=== PATIENT | male | born 1950 | race Caucasian/White ===

== ENCOUNTER → 2016-12-23 | Outpatient (CLI) | payer BC ==
--- NOTE | 2016-12-23 14:32 | RAD ---
EXAM DESCRIPTION: Elbow,Right 3 Views CLINICAL HISTORY: PAIN IN RIGHT ELBOW COMPARISON: None Available. TECHNIQUE: AP, Lateral, and Oblique FINDINGS: Three views of the right elbow demonstrate modest degenerative changes with prominent spur involving the olecranon process but no evidence of acute fracture or dislocation or large joint effusion. The radial neck and head appear intact. No fracture or dislocation noted. IMPRESSION: 1. Mild degenerative changes. Electronically signed by: Edinson Leiva MD 12/23/2016 2:31 PM [facility]
--- NOTE | 2016-12-23 14:34 | RAD ---
EXAM DESCRIPTION: Foot,Right 3 Views CLINICAL HISTORY: 66 years, Male, PAIN IN RIGHT FOOT COMPARISON: None TECHNIQUE: AP, lateral, and oblique views of the right foot FINDINGS: Right foot is osteopenic and mildly degenerative. Previous internal fixation of the medial malleolus with two screws and the lateral malleolus with a sideplate is noted. Deformity of the fifth proximal phalanx suggests previous fracture. No acute fracture or dislocation is seen. No foreign body is noted. IMPRESSION: Mild osteopenia without acute injury with probable old healed fracture of the fifth proximal phalanx. Electronically signed by: Edinson Leiva MD 12/23/2016 2:33 PM [facility]
== END | disposition home or self-care (01) ==
LOC: RAD 07:55
PROVIDERS: ATTEND Orthopaedic Surgery
DX: M79.671 Pain in right foot (principal)

== ENCOUNTER → 2017-08-21 | Outpatient (CLI) | payer BC, MEDICARE | LOC: GMAE 15:13 | PROVIDERS: ATTEND Family Medicine | DX: G60.3 Idiopathic progressive neuropathy (principal); M54.16 Radiculopathy, lumbar region; Z79.891 Long term (current) use of opiate analgesic; Z51.81 Encounter for therapeutic drug level monitoring ==

== ENCOUNTER → 2017-08-28 | Outpatient (CLI) | payer MEDICARE | LOC: LAB.O 11:47 | PROVIDERS: ATTEND Psychiatry & Neurology Neurology | DX: M45.0 Ankylosing spondylitis of multiple sites in spine (principal); K50.90 Crohn's disease, unspecified, without complications; M33.90 Dermatopolymyositis, unspecified, organ involvement unspecified; R53.83 Other fatigue; M79.A9 Nontraumatic compartment syndrome of other sites; M10.9 Gout, unspecified; E03.9 Hypothyroidism, unspecified; G60.3 Idiopathic progressive neuropathy; M35.1 Other overlap syndromes; G35 Multiple sclerosis; M79.1 Myalgia; E53.8 Deficiency of other specified B group vitamins; M32.10 Systemic lupus erythematosus, organ or system involvement unspecified ==

== ENCOUNTER → 2018-11-06 | Outpatient (CLI) | payer MEDICARE ==
--- NOTE | 2018-11-06 18:19 | US ---
EXAM DESCRIPTION: Venous,Lower Extremity RT CLINICAL HISTORY: POSSIBLE DVT COMPARISON: None Available. TECHNIQUE: Right lower extremity venous duplex FINDINGS: Doppler evaluation of the right lower extremity deep veins was performed. Normal color flow is seen in the common femoral, superficial femoral, profunda femoral and greater saphenous veins. Normal flow is seen in the popliteal vein and veins below the knee in the calf. Normal venous compressibility and flow augmentation. IMPRESSION: Negative for evidence of deep venous thrombosis on right lower extremity venous Doppler sonogram. Electronically signed by: Jc Porter MD 11/06/2018 6:18 PM CDT
== END ==
LOC: US 17:36
PROVIDERS: ATTEND Family Medicine
DX: R22.41 Localized swelling, mass and lump, right lower limb (principal)

== ENCOUNTER → 2018-11-09 | Outpatient (CLI) | payer MEDICARE | LOC: GMAE 12:54 | PROVIDERS: ATTEND Family Medicine | DX: M25.571 Pain in right ankle and joints of right foot (principal) ==

== ENCOUNTER → 2018-12-03 | Outpatient (CLI) | payer MEDICARE ==
--- NOTE | 2018-12-03 14:21 | RAD ---
4 radiographs right knee Indication: KNEE PAIN Comparison: September 06, 2014 Impression: Moderate tricompartmental joint space narrowing throughout the right knee with tiny joint line osteophytes. Small knee effusion. No acute fracture. Electronically signed by: Vinay Shine MD 12/03/2018 2:19 PM CDT
--- NOTE | 2018-12-03 14:21 | RAD ---
Single frontal view pelvis Indication: HIP PAIN Comparison: September 06, 2014 Impression: Lower lumbar fusion construct partially visualized. No acute fracture the pelvis identified. Evaluation for fracture is limited given the degree of osteopenia. If high clinical concern for acute fracture, correlation with MRI recommended given its greater sensitivity in the osteopenic patient. If the patient cannot tolerate MRI imaging or more urgent imaging is required, CT could be performed, however it is less sensitive in the osteopenic patient when compared to MRI. Mild bilateral hip osteoarthritis. Mild pubic symphysis osteoarthritis. Osteopenia. If this is a new finding, DEXA scan recommended as well as evaluation for possible osteoporosis treatment. Electronically signed by: Vinay Shine MD 12/03/2018 2:20 PM CDT
== END ==
LOC: RAD 09:07
PROVIDERS: ATTEND Orthopaedic Surgery
DX: M17.11 Unilateral primary osteoarthritis, right knee (principal); M16.0 Bilateral primary osteoarthritis of hip; M85.88 Other specified disorders of bone density and structure, other site

== ENCOUNTER → 2019-03-15 | Outpatient (CLI) | payer MEDICARE | LOC: GMAE 10:31 | PROVIDERS: ATTEND Family Medicine | DX: Z12.5 Encounter for screening for malignant neoplasm of prostate (principal); I10 Essential (primary) hypertension; E78.5 Hyperlipidemia, unspecified; E11.9 Type 2 diabetes mellitus without complications | CPT/HCPCS: 84443; G0103 ==

== ENCOUNTER → 2019-08-16 | Outpatient (CLI) | payer MEDICARE ==
--- NOTE | 2019-08-16 16:48 | MRI ---
EXAM DESCRIPTION: Brain w/o Contrast: MRI. CLINICAL HISTORY: CEREBROVASCULAR DISEASE COMPARISON: None. TECHNIQUE: Multiplanar, high-field MRI unit, multiple diffusion sequences, multiple conventional sequences without contrast. FINDINGS: Trace amount of hyperintense FLAIR and T2-weighted signal in the periventricular white matter tracks: Byrd radiata and centrum semiovale. No hemorrhage, no cerebral edema, no midline shift.. Normal signal in the bilateral basal ganglia. Normal signal in the brainstem and cerebellar hemispheres.. Concordance of the diffusion and non-diffusion sequences with no diffusion restriction. Cortical sulci, ventricles, and other CSF spaces, and the subdural spaces are normally configured for patients age, except for slightly more prominence of frontal cortical sulci. No effacement or displacement. No midline shift. No extra-axial hemorrhage. Normal flow signal void in the major vessels of the [place], and the venous sinuses. IACs are symmetric bilaterally. Normal signal in the bilateral mastoid air cells. No mass effect in the bilateral cerebellopontine angles. Pituitary gland occupies most of the sella. Base of the cerebellar tonsils is above the foramen magnum. Minimal mucoperiosteal thickening in the paranasal sinuses. The bony calvarium is intact. IMPRESSION: 1. Signal in the periventricular white matter is most likely related to aging. Less likely related to early cerebral microvascular disease or other processes. Also age-related changes symmetrically in the bilateral frontal lobes. 2. Mild chronic paranasal sinusitis. Electronically signed by: Clifford Feliciano MD 08/16/2019 4:47 PM CDT
== END ==
LOC: MRI 10:31
PROVIDERS: ATTEND Psychiatry & Neurology Neurology
DX: I67.9 Cerebrovascular disease, unspecified (principal); J32.9 Chronic sinusitis, unspecified; M54.12 Radiculopathy, cervical region; M54.16 Radiculopathy, lumbar region

== ENCOUNTER → 2019-08-17 | Outpatient (CLI) | payer MEDICARE ==
--- NOTE | 2019-08-17 14:25 | MRI ---
EXAM DESCRIPTION: Lumbar Spine w/o Contrast CLINICAL HISTORY: 68 years Male, LUMBAR RADICULOPATHY COMPARISON: MRI lumbar spine 11/25/2012. TECHNIQUE: Multisequence, multiplanar images of the lumbar spine without intravenous contrast. FINDINGS: For the purpose of this report, the designated L5-S1 disc space will be referred to as axial T2 image 3, series 501. Vertebrae: Susceptibility artifact secondary to posterior fusion construct spanning L3-S1. Within these limitations, no acute fracture or acute compression deformity. Moderate levocurvature centered at L2-L3. Mild lumbar lordosis. Normal AP alignment. No suspicious marrow signal of the nonsurgical levels. Spinal cord: Termination of the conus medullaris at T12. Normal nerve roots of the cauda equina. Discs, facets, spinal canal, and neural foramina: Disc desiccation at L2-L3. Mild disc space narrowing at L2-3 through L4-5. L1-L2: Minimal disc bulge eccentric towards the left probably containing posterior left foraminal tiny annular fissure. Severe facet arthropathy. Mild right lateral recess stenosis. Spinal canal patent. Mild bilateral neural foraminal stenosis. L2-3: Minimal disc bulge. Severe facet arthropathy. Spinal canal patent. Mild right but no left neural foraminal stenosis. L3-4: No disc bulge. Severe facet arthropathy. Mild right lateral recess stenosis which could be abutting and affecting the transiting L4 nerve root. Mild spinal canal stenosis. Mild right but no left neural foraminal stenosis. L4-5: No disc bulge. Spinal canal patent. Mild left but no right neural foraminal stenosis. L5-S1: Small disc bulge. Spinal canal patent. Mild left but no right or foraminal stenosis. Paraspinous soft tissues: Unremarkable. IMPRESSION: 1. No acute fracture. 2. Posterior fusion construct at L3-S1. 3. Lumbar spondylosis with no greater than mild spinal canal stenosis. 4. L3-L4 mild right lateral recess stenosis could be affecting the transiting right L4 nerve root. 5. Multilevel mild neural foraminal stenosis. Electronically signed by: Geoff Wilson MD 08/17/2019 2:23 PM CDT
== END ==
LOC: MRI 13:00
PROVIDERS: ATTEND Psychiatry & Neurology Neurology
DX: M47.26 Other spondylosis with radiculopathy, lumbar region (principal); M48.061 Spinal stenosis, lumbar region without neurogenic claudication; Z98.1 Arthrodesis status; I67.9 Cerebrovascular disease, unspecified

== ENCOUNTER → 2019-08-18 | Outpatient (CLI) | payer MEDICARE ==
--- NOTE | 2019-08-18 15:59 | MRI ---
EXAM DESCRIPTION: Cervical Spine: MRI. CLINICAL HISTORY: 68 years Male RADICULOPATHY COMPARISON: MRI lumbar spine August 16. TECHNIQUE: Multiplanar, high-field MRI, multiple sequences, non-contrast Cervical spine. FINDINGS: C4-C5: Minimal disc desiccation with anterior posterior bulging not abutting the cord. Left uncinate spur encroaching on the left neural foramen is moderately narrowed. Mild narrowing right neural foramen and canal. Facet joints and ligaments are unremarkable. C5-C6: Disc desiccation with posterior midline and right posterior bulge abutting the cord and the right C6 nerve. Small right uncinate spur with moderate to severe right foraminal narrowing. Left neuroforamen patent. Moderate narrowing right paracentral canal. Facet joints are negative. C7-T1: Disc space loss minimal with posterior bulge and trace anterolisthesis. Canal and neural foramina are patent. Facet joints are negative. Normal signal in the C2-C3 disc, C3-C4 disc, C6-C7 disc, and T1-T2 disc with no bulging. Disc spaces preserved. Canal and neural foramina are patent. Facet joints are unremarkable. Spinal alignment reduced cervical lordosis. No cord compression or cord edema. Atlantoaxial joint with mild arthrosis and hypertrophy. Base of the cerebellar tonsils is at the level of the foramen magnum. Paravertebral soft tissues negative.. Vertebral bodies are not compressed at any level. Otherwise normal marrow signal in the remaining vertebral bodies and the posterior elements. IMPRESSION: 1. Left uncinate spur at C4-C5 narrowing the left neural foramen. 2. Right posterior bulge of the C5-C6 disc abutting the cord and the right C6 nerve. No neural foraminal stenosis. Electronically signed by: Clifford Feliciano MD 08/18/2019 3:58 PM CDT
== END ==
LOC: MRI 15:15
PROVIDERS: ATTEND Psychiatry & Neurology Neurology
DX: M50.122 Cervical disc disorder at C5-C6 level with radiculopathy (principal); M25.78 Osteophyte, vertebrae

== ENCOUNTER 2019-10-10 17:55 | Emergency (ER) | payer MEDICARE ==
[2019-10-10] MEDS ORDERED: TETANUS,DIPHTHERIA,PERTUSSIS 1 EA SYG IM ONE (18:30)
[2019-10-10] MEDS ORDERED: SULFA/TRIMETH 800/160 (DS) TAB 1 EA TAB PO ONE (18:30)
--- NOTE | 2019-10-10 18:32 | ED.PDOC ---
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 He has a 9 cm laceration to the palmar aspect of the left forearm. No evidence of any laceration to the muscle or deeper tissue. There is mild numbness around the area. He did clean it with Betadine solution prior to coming in. The patient is pleasant and cooperative. No other injuries. It was cut with a scalpel. Timing/Duration: momentarily Severity: mild Improving Factors: nothing Worsening Factors: nothing Associated Symptoms: denies symptoms Allergies/Adverse Reactions: Allergies NO KNOWN ALLERGY Allergy (Verified 10/10/19 18:17) Home Medications: Ambulatory Orders Atorvastatin Calcium [Lipitor] 20 mg PO DAILY 07/25/14 Lansoprazole [Prevacid] 30 mg PO DAILY 07/25/14 Lisinopril 40 mg PO DAILY 07/25/14 Pregabalin [Lyrica] 75 mg PO BID 07/25/14 Tramadol HCl 50 mg PO QID 07/25/14 Zolpidem Tartrate [Ambien] 10 mg PO BEDTIME 07/25/14 amLODIPine BESYLATE [Norvasc] 5 mg PO DAILY 07/25/14 Meclizine HCl [Antivert] 25.5 mg PO TID PRN #15 tab 03/28/15 Ondansetron Tab [Zofran Tab] 4 mg PO BID PRN #8 tab 03/28/15 Sulfa/Trimeth 800/160 (Ds) Tab [Bactrim DS Tab] 1 ea PO DAILY #5 tab 10/10/19 Review of Systems - Review of Systems Constitutional: States: no symptoms reported EENTM: States: no symptoms reported Respiratory: States: no symptoms reported Cardiology: States: no symptoms reported Gastrointestinal/Abdominal: States: no symptoms reported Genitourinary: States: no symptoms reported Musculoskeletal: States: no symptoms reported Skin: States: see HPI Neurological: States: no symptoms reported Endocrine: States: no symptoms reported All other Systems: No Change from Baseline Past Medical History (General) - Patient Medical History Hx Stroke: No Hx of COPD: No Hx Cardiac Disorders: No Hx Congestive Heart Failure: No Hx Hypertension: Yes Hx Diabetes: No Hx Cancer: No - Vaccination History Hx Influenza Vaccination: Yes Hx Pneumococcal Vaccination: Yes - Social History Hx Tobacco Use: Yes Hx Alcohol Use: Yes Hx Substance Use: No Hx Substance Use Treatment: No Hx Depression: No - Female History Patient is a Female of Child Bearing Age (10 -59 yrs old): No Patient : No Family Medical History - Family History Father Family History: Unknown Living Status: Unknown Physical Exam - Physical Exam General Appearance: Alert, Comfortable, No apparent distress Eye Exam: bilateral normal Ears, Nose, Throat: hearing grossly normal Respiratory: no respiratory distress, no accessory muscle use Cardiovascular/Chest: normal peripheral pulses, no edema Peripheral Pulses: radial,right: 2+, radial,left: 2+ Rectal Exam: deferred Extremity: normal range of motion - Of the upper extremities, normal capillary refill 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 3-0 Ethilon was used for reapproximation. Sutures can come out in 10 days. The patient will be placed on 5 days of daily Bactrim for infection prophylaxis and the patient did receive a dose of tetanus here prior to discharge. Monitor for any evidence of infection. ER warnings are given for any worsening. [id number] Procedure note: Risk and benefits were explained and patient agreed to proceed. Wound is irrigated with 250 cc of sterile saline. Lidocaine with epinephrine x6 cc was used for local anesthetic. Approximately 8 sutures of 3-0 Ethilon were used for reapproximation. Good hemostasis obtained. Sutures need to be removed in 10 days. Departure - Departure Clinical Impression: Accidental laceration Disposition: Discharge to Home or Self Care Condition: Fair Departure Forms: ED Discharge - Pt. Copy, Patient Portal Self Enrollment Diet: regular diet Activity: increase activity as tolerated Referrals: ROXANE FRAUSTO MD [Primary Care Provider] - 1-2 Weeks Prescriptions: Sulfa/Trimeth 800/160 (Ds) Tab [Bactrim DS Tab] 1 ea PO DAILY #5 tab Home Medications: Ambulatory Orders Atorvastatin Calcium [Lipitor] 20 mg PO DAILY 07/25/14 Lansoprazole [Prevacid] 30 mg PO DAILY 07/25/14 Lisinopril 40 mg PO DAILY 07/25/14 Pregabalin [Lyrica] 75 mg PO BID 07/25/14 Tramadol HCl 50 mg PO QID 07/25/14 Zolpidem Tartrate [Ambien] 10 mg PO BEDTIME 07/25/14 amLODIPine BESYLATE [Norvasc] 5 mg PO DAILY 07/25/14 Meclizine HCl [Antivert] 25.5 mg PO TID PRN #15 tab 03/28/15 Ondansetron Tab [Zofran Tab] 4 mg PO BID PRN #8 tab 03/28/15 Sulfa/Trimeth 800/160 (Ds) Tab [Bactrim DS Tab] 1 ea PO DAILY #5 tab 10/10/19 Additional Instructions: The patient is a 69-year-old male presented emergency room secondary to a 9 cm laceration to the mid forearm on the left , that does go through the skin but not into deeper tissue. 3-0 Ethilon was used for reapproximation. Sutures can come out in 10 days. The patient will be placed on 5 days of daily Bactrim for infection prophylaxis and the patient did receive a dose of tetanus here prior to discharge. Monitor for any evidence of infection. ER warnings are given for any worsening.
[2019-10-10 19:02] VITALS: BP 125/79; TEMP 97.6; O2SAT 95
== END 2019-10-10 18:55 | disposition home or self-care (01) ==
LOC: ER 17:55
DX: S51.812A Laceration without foreign body of left forearm, initial encounter (principal); I10 Essential (primary) hypertension; Z87.891 Personal history of nicotine dependence; Z79.899 Other long term (current) drug therapy; W45.8XXA Other foreign body or object entering through skin, initial encounter; Y93.89 Activity, other specified; Y99.0 Civilian activity done for income or pay